=== PATIENT | female | born 1965 | race Asian ===

== ENCOUNTER 2020-04-08 12:32 | Emergency (ER) | payer OTHER, SELFPAY ==
--- NOTE | ~2020-04-08 | XR_ITS ---
XR ankle LT min 3V 04/08/2020 13:34 INDICATION: Left ankle wound and discoloration PROCEDURE: 4 views left ankle COMPARISON: No prior studies for comparison. FINDINGS: Fracture, dislocation or subluxation is not identified. Osteopenia. Ankle mortise intact. T he soft tissues appear within normal limits. No foreign bodies are identified. IMPRESSION: 1: NO ACUTE BONE OR JOINT ABNORMALITY IDENTIFIED. Reviewed, dictated and finalized at location A.
[2020-04-08 12:33] VITALS: BP 116/46; PULSE 64; RESP 16; TEMP 37.2; O2SAT 100
[2020-04-08 13:32] LABS: Basophils Absolute Auto 0.1 K/mm3 (0.0-0.1); Basophils Percent Auto 0.7 % (0.2-1.2); Eosinophils Absolute Auto 0.2 K/mm3 (0-0.3); Eosinophils Percent Auto 2.5 % (0-4.4); Hematocrit 34.8 % (37.0-47.0); Hemoglobin 11.5 g/dL (12.0-15.0); Immature Granulocyte Absolute 0.01 K/mm3 (0.00-0.031); Immature Granulocyte Percent A 0.1 % (0-0.5); Lymphocytes Absolute Auto 1.71 K/mm3 (0.9-3.2); Mean Corpuscular Hemoglobin 30.3 pg (26-34); Mean Corpuscular Volume 91.8 fl (80-100); Mean Platelet Volume 10.3 fl (7.4-10.4); Monocytes Absolute Auto 0.5 K/mm3 (0.1-0.6); Monocytes Percent Auto 7.7 % (2.6-8.5); Neutrophils Absolute Auto 4.4 K/mm3 (1.3-6.7); Platelet Count Result 261 k/mm3 (150-375); Red Blood Count 3.79 M/mm3 (4.2-5.4); Red Cell Distribution Width 12.8 % (11.5-14.5); White Blood Count 6.9 K/mm3 (4.5-10.0)
--- NOTE | 2020-04-08 13:42 | PC.NURSE ---
BLANKA IN WOUND CARE WILL COME SEE PT.
--- NOTE | 2020-04-08 13:42 | ED.WOUNDLAC ---
HPI - Wound/Laceration General Chief Complaint: Wound/Laceration Stated Complaint: LEFT LEG ULCER Time Seen by Provider: 04/08/20 13:35 Source: RN notes reviewed History of Present Illness HPI narrative: Patient presents emergency department from home for a wound to the left leg. Per patient and family the wound is been present for approximately 2 months. The pain is located in the left posterior ankle and began as a small ulcer is progressed in size. They deny any redness of the wound or any drainage from the wound deny any known trauma or injury. The patient has no previous history of diabetes and has had no previous evaluation for the wound. Denies any fevers or chills Related Data Allergies Allergy/AdvReac Type Severity Reaction Status Date / Time rifampin Allergy Intermediate RASH, Unverified 02/13/09 14:17 ITCHING No Known Allergies Allergy Mild Verified 08/02/08 06:47 Review of Systems Review of Systems: Narrative: Gen.: Denies fevers or chills ENT: Denies congestion Respiratory: Denies shortness of breath CV: Denies chest pain GI: Denies abdominal pain nausea, emesis Musculoskeletal: Denies back pain or muscle pain Neuro: Denies numbness, tingling, weakness or focal weakness Skin: See HPI Except as documented, all other systems reviewed and negative PMFSH Past Medical History Medical History (Updated 04/08/20 @ 14:21 by Donald Owens DO) Patient denies significant medical history Social History Social History (Updated 04/08/20 @ 13:43 by Donald Owens DO) Smoking status: Never smoker Gender identity (if verbalized by the patient): Female Exam Narrative: Exam Narrative: APPEARANCE: No acute distress, nontoxic, resting in bed EYES: EOMI HEENT: Normocephalic, atraumatic, OMM RESPIRATORY: No respiratory distress Clear to auscultation bilaterally with no rhonchi wheezing or rales. CARDIOVASCULAR: Regular rate and rhythm without murmurs rubs or gallops. ABDOMINAL: Soft, nontender, nondistended, no rebound or guarding MUSCULOSKELETAl: Moves all extremities. No clubbing, cyanosis or edema. Bilateral dorsalis pedis pulse 2+ NEURO: Awake and alert. Following commands, speech normal, no focal deficits SKIN:: Warm, dry. Left lower extremity has a circular wound over the posterior distal lower leg just proximal to the ankle it is circular with eschar over the central aspect consistent with a ulcer, right anterior sanchez has a small area of open wound with no surrounding erythema PSYCHIATRIC: Normal affect/mood, Course Course Emergency Course: Wound management came down to evaluate patient. They debrided the wound. At this time they recommend that the wound be followed up for possible biopsy. He states that the patient should be placing silver gel on the wound once a day Called and discussed with Dr. Butler for plastic surgery. Agrees with plan for follow-up as an outpatient for biopsy Discussed with patient results of workup and diagnosis. Discussed need for follow-up with primary care, proper use of medication, and reasons to return to the emergency department. Patient understands and agrees to current treatment plan Vital Signs Vital signs: Vital Signs Temperature 99 F 04/08/20 12:33 Pulse Rate 64 04/08/20 12:33 Respiratory Rate 16 04/08/20 12:33 Blood Pressure 116/46 L 04/08/20 12:33 Pulse Oximetry 100 04/08/20 12:33 Temperature 99 F 04/08/20 12:33 Pulse Rate 64 04/08/20 12:33 Respiratory Rate 16 04/08/20 12:33 Blood Pressure 116/46 L 04/08/20 12:33 Pulse Oximetry 100 04/08/20 12:33 MDM - Wound/Laceration Lab Data Result diagrams: 04/08/20 13:18 04/08/20 13:18 Labs: Lab Results 04/08/20 04/08/20 04/08/20 Range/Units 13:18 13:18 13:18 WBC 6.9 (4.5-10.0) K/mm3 RBC 3.79 L (4.2-5.4) M/mm3 Hgb 11.5 L (12.0-15.0) g/dL Hct 34.8 L (37.0-47.0) % MCV 91.8 (80-100) fl MCH 30.3 (26-34) pg
[2020-04-08 13:45] LABS: Alanine Aminotransferase 13 U/L (4-35); Albumin Level 4.4 g/dL (3.5-5.1); Alkaline Phosphatase 85 U/L (38-126); Aspartate Amino Transferase 41 U/L (14-36); Bilirubin,Total 0.5 mg/dL (0.2-1.3); Blood Urea Nitrogen 30 mg/dL (7-17); Calcium 9.7 mg/dL (8.4-10.2); Carbon Dioxide 27 mmol/L (22-30); Chloride 103 mmol/L (98-107); Estimated Glomerular Filt Rate > 60; Glucose 97 mg/dL (65-105); Potassium 3.8 mmol/L (3.4-5.0); Sodium 138 mmol/L (137-145)
[2020-04-08 13:46] LABS: Lactic Acid Reflex 1.2 mmol/L (0.7-2.1)
--- NOTE | 2020-04-08 13:49 | PC.NURSE ---
tobacco curer here to see patient.
[2020-04-08 13:51] LABS: CRP < 0.5 mg/dL (<1.0)
[2020-04-08] MEDS: SILVERGEL (ELTA) 45 ML 1 APPLIC TOPICAL (14:28)
[2020-04-08] MEDS: ACETAMINOPHEN 500 MG TABLET 1000 MG PO (14:37)
[2020-04-08] MEDS: CEPHALEXIN 500 MG CAPSULE PO (14:37)
== END 2020-04-08 14:42 | disposition home or self-care (01) ==
PROVIDERS: Emergency Provider Emergency Medicine; PCP Emergency Medicine
DX: L97.329 Non-pressure chronic ulcer of left ankle with unspecified severity (principal); L97.819 Non-pressure chronic ulcer of other part of right lower leg with unspecified severity
CPT/HCPCS: 36415; 73610; 80053; 83605; 85025; 86140; 87040; 99283; A9270

== ENCOUNTER 2020-04-30 00:11 | Outpatient (CLI) | payer OTHER, SELFPAY ==
[2020-04-30 19:45] LABS: SARS-CoV-2 RNA PCR Negative
== END 2020-04-30 00:12 | disposition home or self-care (01) ==
LOC: ANHCOVIDDT 00:11
PROVIDERS: PCP Emergency Medicine; Visit Provider Surgery Plastic and Reconstructive Surgery
DX: Z01.812 Encounter for preprocedural laboratory examination (principal); Z11.59 Encounter for screening for other viral diseases
CPT/HCPCS: 87635; C9803; U0003

== ENCOUNTER 2020-05-02 03:19 | Day surgery (SDC) | payer OTHER, SELFPAY ==
[2020-04-24 10:52] VITALS: BMI 17.6
[2020-05-02] VITALS (8 sets, daily range): BP systolic 84–131; BP diastolic 48–77; PULSE 68–87; RESP 15–20; TEMP 36.3–37.8; O2SAT 100
--- NOTE | 2020-05-02 09:42 | WPDANESEPPF ---
Anes - Initial Pre Proc Eval Procedure: Operation Date: 05/02/20 10:30 Proposed Procedures p Debridement Left Posterior Ankle - Joseph Short MD Date/Time: 05/02/20 09:42 Surgeon: Joseph Short MD Pre Op Diagnosis: wound left posterior ankle Patient Data Age: 54 Gender: F Height: 5 ft 3 in Weight: 45.36 kg Allergies Allergy/AdvReac Type Severity Reaction Status Date / Time No Known Allergies Allergy Verified 05/02/20 09:14 Home Medications Medication Instructions Recorded Confirmed Type cephalexin [Keflex] 500 mg PO Q6H #40 cap 04/08/20 05/02/20 Rx hydrocodone 5 mg-acetaminophen 325 1 tablet PO Q8H PRN 04/15/20 05/02/20 History mg tablet silver sulfadiazine 1 applic TOPICAL DAILY 04/24/20 05/02/20 History Patient hx anesthesia problems: none Family hx anesthesia problems: none PMFSH Past Medical History Medical History (Updated 05/02/20 @ 09:42 by Arik Smalls MD) Patient denies significant medical history SOB (shortness of breath) Social History Social History (Updated 04/08/20 @ 13:43 by Donald Owens DO) Smoking status: Never smoker Gender identity (if verbalized by the patient): Female Anes - Eval Final PreProcedure Day of Procedure 05/02/20 09:42 Patient weight: normal Heart: regular rate and rhythm Lungs: clear to auscultation Airway: Mallampati scale Last oral intake: >/= 8 hours ASA classification: II Emergent: no Anesthetic plan: proceed Anesthesia type and monitoring: general LMA and standard monitoring Informed Consent: The patient's anesthetic plan and its attendant risks and benefits were discussed with the patient/family/POA. Questions were solicited and answers provided to the satisfaction of the patient/family/POA.
[2020-05-02] MEDS: LACTATED RINGERS 1,000 ML 30 ML IV CONT (09:50)
[2020-05-02] MEDS: MIDAZOLAM HCL 2 MG/2 ML VIAL 1 MG IV PUSH (10:00)
--- NOTE | 2020-05-02 11:04 | WPDHPUPDATE1 ---
History and Physical Update Update Date/Time: 05/02/20 11:04 History and Physical has been reviewed, including an updated exam of the patient. There are NO changes in the patient's condition. Risks, benefits, and alternatives have been discussed and questions answered. Patient agrees to proceed with procedure.
--- NOTE | 2020-05-02 11:04 | PM.PROC ---
Procedure Note - Detailed Date of procedure: 05/02/20 Pre-op diagnosis: wound left posterior ankle Post-op diagnosis: same Procedure performed: Excisional sharp debridement left posterior ankle including skin / subcutaneous tissue 5.8 x 4 cm Description of procedure: She was marked in the preoperative holding area with her verification. She was taken to the operating room placed lateral decubitus position on the operating room table. Anesthesia was provided by anesthesiology and prepped and draped in a standard sterile fashion. Surgical time-out was taken. 1% lidocaine and 0.25% Marcaine with epinephrine was used anesthetize locally. A 15 blade used to make an incision and sharply excised the wound. This included skin, subcutaneous tissue. No evidence of tendon, nerve, or other structure injury. This was sent to pathology. Copiously irrigated with a saline solution on TUR tubling. Verified strick hemostasis. Xerform, fluffs, and BENJAMIN wrap lightly applied was placed. She tolreated well. Anesthesia: GETA Surgeon: Joseph Short MD Estimated blood loss (mL): 3 Drains: No Packing: Yes Pathology: yes Complications: No immediate complications Condition: stable Disposition: PACU
[2020-05-02] MEDS: LIDO 1%/EPINEPHRINE 1:100,000 20 ML VIAL 10 ML INFILTRATE (11:25)
[2020-05-02] MEDS: ceFAZolin 2 GM/D5W 50 ML 2 GM/50 ML BAG IVPB (11:25)
[2020-05-02] MEDS: BUPIVACAINE HCL 0.25% PF 30 ML VIAL INFILTRATE (11:25)
--- NOTE | 2020-05-02 11:52 | SUR.OPER ---
EBL:3cc
== END 2020-05-02 14:00 | disposition home or self-care (01) ==
PROVIDERS: PCP Emergency Medicine; Visit Provider Surgery Plastic and Reconstructive Surgery
PROC: (CPT 11042; principal; 2020-05-02 10:30)
DX: S91.002A Unspecified open wound, left ankle, initial encounter (principal); W22.8XXA Striking against or struck by other objects, initial encounter
CPT/HCPCS: 11042; 11045; 88305; J0690; J2250; J2704; J3010; J7120

== ENCOUNTER 2020-06-10 07:29 | Outpatient (RCR) | payer OTHER, SELFPAY ==
[2020-05-09 13:52] VITALS: BMI 16.2
--- NOTE | 2020-05-09 15:30 | P.PN_ITS ---
Progress Note: A&P Assessment and Plan (1) Leg wound, left: Code(s): S81.802A - Unspecified open wound, left lower leg, initial encounter Status: Acute Assessment and Plan: Begin dressing changes. Follow-up in wound care. Today we had a lengthy discussion about the care. What monitor for. Redone re- evaluate determine if we would proceed with a grafter allow this to heal with secondary intention. Other leg wounds are completely healed. I will see her back. Call with any questions or concerns. (2) Leg wound, right: Code(s): S81.801A - Unspecified open wound, right lower leg, initial encounter Status: Acute Review of Systems Review of Systems: All systems reviewed & are unremarkable except as noted in HPI and below Exam Narrative: Exam Narrative: Right leg she had some previous wounds that are healed. On her left leg she also has some wounds are healed. On her posterior left ankle she does have clean wound. No signs of infection. No hematoma. No seroma. Const: General: no acute distress Orientation/consciousness: oriented to person HENMT: Head: normal to inspection Ears: external ears normal General nose exam: Normal external nose present Face and sinus: normal facial exam Eyes: General: appearance normal, both eyes and all related structures Periorbital: periorbital findings normal Eyelids: eyelids normal Conjunctivae: conjunctivae normal Neck: Neck: normal visual inspection Chest: Chest palpation & inspection: normal inspection of the chest Resp: Effort & Inspection: normal respiratory effort and able to speak in complete sentences GI: Inspection: normal to inspection Neuro: General: oriented to person Psych: Appearance: grossly normal Mental Status: mental status grossly normal Objective Data Meds/Results Medications: Active Medications Generic Name Dose Route Start Last Admin Trade Name Freq PRN Reason Stop Dose Admin Silver Nitrate 1 applic 05/09/20 14:04 Silvergel TOPICAL 07/10/20 23:59 PRN PRN Wound Care Wound Care/Dressing Products 1 patch 05/09/20 14:05 Mepilex Transfer Drsg 6x8 TOPICAL 07/10/20 23:59 PRN PRN Wound Care
--- NOTE | 2020-06-10 15:41 | P.PN_ITS ---
Progress Note: A&P Assessment and Plan (1) Leg wound, left: Code(s): S81.802A - Unspecified open wound, left lower leg, initial encounter Status: Acute Assessment and Plan: I have concerns she has made little progress on this wound. Further she has had wounds on bilateral legs of intermittent stages of healing. Finally she is having systemic symptoms of pain and weakness. I am going to refer her to a [facility] for further evaluation. They have requested [facility]. We will arrange this. Also given her systemic symptoms with no evidence of infection or other cause I strongly advised her to discuss with her primary care immediately. Of note she does appear to have a lot of life stressors occurring with a sick family member and being a significant distance from her blood relatives. Today we had a lengthy discussion about the care. What to monitor for. We will continue to follow until referral is complete. (2) Leg wound, right: Code(s): S81.801A - Unspecified open wound, right lower leg, initial encounter Status: Acute Time Spent With Patient Time with patient: 15 - 25 minutes Review of Systems Review of Systems: All systems reviewed & are unremarkable except as noted in HPI and below Exam Narrative: Exam Narrative: Right leg she had some previous wounds that are healed. On her left leg she also has some wounds are healed. On her posterior left ankle she does have clean wound. No signs of infection. No hematoma. No seroma. See wound care measurements. Const: General: no acute distress Orientation/consciousness: oriented to person HENMT: Head: normal to inspection Ears: external ears normal General nose exam: Normal external nose present Face and sinus: normal facial exam Eyes: General: appearance normal, both eyes and all related structures Periorbital: periorbital findings normal Eyelids: eyelids normal Conjunctivae: conjunctivae normal Neck: Neck: normal visual inspection Chest: Chest palpation & inspection: normal inspection of the chest Resp: Effort & Inspection: normal respiratory effort and able to speak in complete sentences GI: Inspection: normal to inspection Neuro: General: oriented to person Psych: Appearance: grossly normal Mental Status: mental status grossly normal Objective Data Meds/Results Medications: Active Medications Generic Name Dose Route Start Last Admin Trade Name Freq PRN Reason Stop Dose Admin Silver Nitrate 1 applic 05/09/20 14:04 Silvergel TOPICAL 07/10/20 23:59 PRN PRN Wound Care Wound Care/Dressing Products 1 patch 05/09/20 14:05 Mepilex Transfer Drsg 6x8 TOPICAL 07/10/20 23:59 PRN PRN Wound Care
== END 2020-07-29 12:29 | disposition home or self-care (01) ==
LOC: ANHWOC 07:29
PROVIDERS: PCP Emergency Medicine; Visit Provider Surgery Plastic and Reconstructive Surgery
DX: Z48.817 Encounter for surgical aftercare following surgery on the skin and subcutaneous tissue (principal)
CPT/HCPCS: 99212; 99213; G0463

== ENCOUNTER → 2020-12-18 12:21 | Outpatient (CLI) | payer OTHER, SELFPAY ==
--- NOTE | ~2020-12-18 | DEXA_ITS ---
Bone Density Report Name: Silvano Devlin Age: 55 Sex: Female Ethnicity: White Date of : 1965 Indication: postmenopausal; screening for osteoporosis; Referring Provider: NATHANIEL CRUZ Study: Bone densitometry was performed. Exam Date: December 18, 2020 Accession number: [id number] Bone Density: Region BMD T-score Z-score Classification AP Spine (L1-L4) 0.768 -2.5 -1.5 Osteoporosis Femoral Neck (Left) 0.536 -2.8 -1.8 Osteoporosis Total Hip (Left) 0.640 -2.5 -1.8 Osteoporosis Femoral Neck (Right) 0.548 -2.7 -1.6 Osteoporosis Total Hip (Right) 0.677 -2.2 -1.5 Osteopenia Total Hip Mean 0.659 -2.4 -1.7 Osteopenia World Health Organization criteria for BMD impression classify patients as: Normal (T-score at or above -1.0), Osteopenia (T-score between -1.0 and -2.5), or Osteoporosis (T-score at or below -2.5). 10-year Fracture Risk: FRAX not reported because: Some T-score for Spine Total or Hip Total or Femoral Neck at or below -2.5 Clinical Information Provided by Patient: Has used the following medications: Vitamin D Patient maximum height was 59.0 Menopause Age: 54 No regular weight bearing exercise Does not regularly consume dairy products Drinks caffeinated beverages Onset of menses at age 14 Number of children 1 Impression: The patient has osteoporosis, based on the Left Femoral Neck T-score. Discussion: INCREASED RISK OF FRACTURE. BONE DENSITY IS UNDESIRABLY LOW AT ONE OR MORE SKELETAL SITES, CONSISTENT WITH POSTMENOPAUSAL OSTEOPOROSIS. This patient's lowest T-score meets the World Health Organization's (WHO) criteria for osteoporosis at one or more sites (T-score -2.5 or below). In untreated patients, the risk of osteoporotic fracture increases approximately two-fold for each 1.0 SD decrease in T-score. Low bone density is not the only risk factor for fracture; also consider factors such as patient's age, frailty or poor health, risk of falling, risk of injury, previous osteoporotic fracture, family history of osteoporosis, cigarette smoking, low body weight, etc. Not everyone with low bone mineral density has osteoporosis; osteomalacia and other metabolic bone disorders should also be considered. Patients who have osteoporosis should be evaluated for specific diseases and conditions (secondary causes) that may cause or contribute to bone loss. The [place] [employer]ocrinologists (AACE) and National Osteoporosis Foundation (NOF) recommend pharmacologic intervention for all postmenopausal women whose T-score is in this range. The patient should follow a healthful lifestyle (good nutrition with adequate calcium and vitamin D, and appropriate weight-bearing exercise). Follow-Up: Consider a repeat BMD and Vertebral Fracture Assessment (VFA) exam in 2 years or sooner if medically necessa
--- NOTE | ~2020-12-18 | US_ITS ---
EXAMINATION: US abdomen complete DATE: 12/18/2020 13:39 INDICATION: Liver disease TECHNIQUE: Multiple grayscale and Doppler ultrasound images of the abdomen were obtained. COMPARISON: None available FINDINGS: The head, body, and tail of the pancreas are normal. There is a 1.2 cm cyst of the liver. T he liver is otherwise normal with normal echogenicity and echotexture. No surface nodularity. Normal hepatopetal flow in the main portal vein. The gallbladder is normal with no abnormal wall thickening, pericholecystic fluid or stones. The normal common bile duct measures 2 mm. There was no sonographic Hernández sign. The visualized portions of the aorta and inferior vena cava are normal. The right kidney measures 9.4 x 4.0 x 4.1 cm. The left kidney measures 10.0 x 4.5 x 4.0 cm. The kidne ys demonstrate normal parenchymal echogenicity. There is no hydronephrosis. The spleen is normal in a ppearance and measures 8.3 cm. IMPRESSION: 1. No sonographic correlate for the patient's symptoms. Reviewed, dictated and finalized at location A. MAINTENANCE MANAGER
== END ==
PROVIDERS: PCP Emergency Medicine; Visit Provider Emergency Medicine
DX: K76.9 Liver disease, unspecified (principal); Z78.0 Asymptomatic menopausal state; M81.0 Age-related osteoporosis without current pathological fracture; M85.851 Other specified disorders of bone density and structure, right thigh
CPT/HCPCS: 76700; 77080

== ENCOUNTER → 2021-01-03 13:36 | Outpatient (CLI) | payer OTHER, SELFPAY ==
--- NOTE | ~2021-01-03 | MM_ITS ---
EXAMINATION: MM screening balbir BI w fredi HISTORY: Screening TECHNIQUE: Craniocaudal and mediolateral oblique 3-D tomosynthesis images were obtained and synthetic 2-D images were generated. CAD analysis was submitted and interpreted. COMPARISON: No prior mammogram is available for comparison at this institution. BREAST PARENCHYMAL COMPOSITION: The breasts are extremely dense, which lowers the sensitivity of mamm ography. FINDINGS: There is a mass lower aspect of the right breast on MLO view which is obscured by fibroglan dular tissue. There is no mammographic evidence for malignancy in the left breast. IMPRESSION: 1. Right breast mass inferiorly on MLO view. 2. Additional mammographic views and possible breast ultrasound are recommended. BI-RADS Category 0: Incomplete: Needs additional imaging evaluation. Reviewed, dictated and finalized at location A. OMER ACCOUNT TECHNICIAN IMPRESSION: 1. Right breast mass inferiorly on MLO view. 2. Additional mammographic views and possible breast ultrasound are recommended . BI-RADS Category 0: Incomplete: Needs additional imaging evaluation.
== END ==
PROVIDERS: PCP Emergency Medicine; Visit Provider Emergency Medicine
DX: Z12.31 Encounter for screening mammogram for malignant neoplasm of breast (principal); R92.8 Other abnormal and inconclusive findings on diagnostic imaging of breast
CPT/HCPCS: 77063; 77067

== ENCOUNTER → 2022-01-30 14:31 | Outpatient (CLI) | payer OTHER, SELFPAY ==
--- NOTE | ~2022-01-30 | MM_ITS ---
EXAMINATION: MM diagnostic balbir BI w fredi HISTORY: Overdue follow-up for right breast mass seen on screening mammogram TECHNIQUE: Craniocaudal, mediolateral, and mediolateral oblique 3-D tomosynthesis images of the breas ts were performed and synthetic 2-D images were generated. CAD analysis was submitted and interpreted . COMPARISON: 01/03/2021 BREAST PARENCHYMAL COMPOSITION: The breasts are extremely dense, which lowers the sensitivity of mamm ography. FINDINGS: There is no suspicious mass, calcification, or architectural distortion in either breast t o suggest malignancy. There has been no suspicious interval change. The previously described right b reast masses no longer identified. IMPRESSION: 1. No mammographic evidence of malignancy. 2. Recommend routine screening mammography in one year. BI-RADS Category 1: Negative Reviewed, dictated and finalized at location A.
== END ==
PROVIDERS: PCP Emergency Medicine; Visit Provider Emergency Medicine
DX: N63.10 Unspecified lump in the right breast, unspecified quadrant (principal); R92.8 Other abnormal and inconclusive findings on diagnostic imaging of breast
CPT/HCPCS: 77062; 77066; G0279